=== PATIENT | female | born 1980 | race African-American/Black ===

== ENCOUNTER 2016-11-26 21:02 | Emergency (ER) | payer MEDICAID ==
[~2016-11-26] VITALS: Ht 157.5 cm; Wt 76.7 kg
[~2016-11-26 21:02] MED LIST: DILAUDID4 M1 PO; FERROUS SULFAT325 MG PO; MORPHINE PO; NORVASC5 MG PO
[2016-11-26 21:20] VITALS: BP 115/68
--- NOTE | 2016-11-26 21:22 | NUR ---
PT TAKEN TO OF
--- NOTE | 2016-11-26 21:22 | NUR ---
Dr. Messer evaluating patient
--- NOTE | 2016-11-26 21:23 | NUR ---
PT C/O COUGHING X 4DAYS
[2016-11-26 21:25] VITALS: BP 110/61
--- NOTE | 2016-11-26 21:25 | NUR ---
Patient discharged with v/s stable. Written and verbal after care instructions given and explained. Patient alert, oriented and verbalized understanding of instructions. Ambulatory with steady gait. All questions addressed prior to discharge. ID band removed. Patient advised to follow up with PMD. Rx of PROMETHAZINE DM 6.25MG-15ML/5ML PO, AUGMENTIN 875MG PO given. Patient educated on indication of medication including possible reaction and side effects. Opportunity to ask questions provided and answered.
== END 2016-11-26 21:25 | disposition home or self-care (01) ==
LOC: MED 21:02
DX: J20.9 Acute bronchitis, unspecified (principal); J45.909 Unspecified asthma, uncomplicated; I10 Essential (primary) hypertension; Z71.6 Tobacco abuse counseling